=== PATIENT | male | born 1960 | race Caucasian/White ===

== ENCOUNTER 2017-10-04 05:20 | Day surgery (SDC) | payer BC, OTHER ==
[~2017-10-04 05:20] MED LIST: Lactated Ringers 1,000 ML IV SCH; Sodium Chloride 0.9% 10 ML Syringe FLUSH PRN; ceFAZolin 2 GM in Premix Bag 1 BAG IV ONE
[2017-10-04] MEDS ORDERED: Bupivacaine 0.5% 10 ML SDV INJECT ONE ×3 (05:21→09:20)
[2017-10-04] MEDS ORDERED: Propofol 200 MG/20 ML SDV IV ONE (05:21)
[2017-10-04] MEDS ORDERED: Lidocaine 1% 30 ML SDV INJECT ONE ×3 (05:21→09:20)
[2017-10-04] MEDS ORDERED: Ondansetron 4 MG/2 ML SDV IV ONE (05:21)
[2017-10-04] MEDS ORDERED: Ketorolac 30 MG/ML SDV IVPUSH ONE (05:21)
[2017-10-04] MEDS ORDERED: Midazolam 1 MG/ML 2 ML SDV IV ONE (05:21)
[2017-10-04] MEDS ORDERED: fentaNYL 100 MCG/2 ML SDV IV ONE (05:21)
[2017-10-04] MEDS ORDERED: Propofol 1,000 MG/100 ML SDV IV ONE (05:21)
[2017-10-04] MEDS ORDERED: Lidocaine 1% 30 ML SDV ONE (06:20)
[2017-10-04] MEDS ORDERED: Bupivacaine 0.5% 10 ML SDV ONE (06:20)
--- NOTE | 2017-10-04 19:34 | OR ---
DATE: 10/04/2017 PREOPERATIVE DIAGNOSES: 1. 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 2. Prominent medial cuneiform with pain, right foot. 3. Flatfoot deformity, bilateral. POSTOPERATIVE DIAGNOSES: 1. 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 2. Prominent medial cuneiform with pain, right foot. 3. Flatfoot deformity, bilateral. PROCEDURE PERFORMED: Right foot cuneiform navicular joint arthrodesis. ANESTHESIA: Local MAC with preoperative local block of 20 mL 1:1 mixture of 1% lidocaine plain and 0.5% Marcaine plain. TOURNIQUET TIME: Pneumatic ankle tourniquet, 84 minutes. ESTIMATED BLOOD LOSS: Minimal. SPECIMEN: None. COMPLICATIONS: None. INDICATIONS: Omar is a 57-year-old male, who presents with right foot pain. I have seen him in the past for other issues with his feet. Now he reports pain at the bottom of his right foot. He states there seems to be a painful lump in the arch area and this is very painful for him when he is standing or walking. I did make him a pair of custom inserts a few years ago but he cannot even wear those anymore due to that pushing against the bony prominence. He states this has been going on for few months now, states that he seemed to notice pain to that area after he had been climbing on a ladder at work. He states he felt a shift in the area, it has been painful underneath since with the bony prominence. He has been busy at work with harvest and is really flaring up on him the last few weeks. X-rays of the left foot reveal cuneiform navicular fault at the right mid foot with flatfoot deformity and prominent medial cuneiform plantarly. There is a prominence at that area on x-ray. 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 No signs of fracture present. The patient voiced good understanding of proposed procedure and possible complications, and elects to have surgery at this time. DESCRIPTION OF THE PROCEDURE: The patient was taken the operating room, lying in supine position. After adequate anesthesia induction as described above, the right foot was prepped and draped in the usual sterile fashion. A pneumatic ankle tourniquet was inflated to 225 mmHg. Attention was then directed to the right mid foot where an approximately 6-cm linear incision was made overlying the medial aspect of the navicular cuneiform joint. Sharp and blunt dissection were performed down to the level of the joint. The anterior tibial tendon was reflected dorsally in the surgical area. There was care to gently retract all neurovascular bundles and also that tendon. A 15 blade was used to make a capsulotomy through the capsule of the navicular cuneiform joint. The medial cuneiform navicular joint was exposed as well as the middle cuneiform navicular joint. Hintermann retractor was used to open the joint and a curette along with a bur was used to remove all cartilage from the medial cuneiform, intermediate cuneiform, and the navicular joint. Once all cartilage was removed, an osteotome was used to fenestrate the joint surfaces and a 0.062 K-wire was also used to fenestrate the joint surfaces. The cuneiform navicular joint was then reduced with the 1st ray plantar flexed and it was ensured that the cuneiform was displaced dorsally so that there was no bony prominence plantarly anymore. The 3-0 cannulated wires from the screw set were used as temporary fixation and fluoroscopy was used to verify proper positioning of the wires as well as proper positioning of the fusion site with no plantar prominence present and good compression at the fusion site. Three 3.0 Evelia cannulated partially threaded screws were placed across the fusion site from the medial navicular into the medial cuneiform and then also from the medial navicular to the intermediate cuneiform and the 3rd screw was placed from the medial cuneiform to the lateral aspect of the navicular. Good compression was noted at the fusion site. Fluoroscopy was then again used to verify proper length of screws and proper positioning with the fusion in a good position. The foot was examined and it was noted that he did have more of an arch with this fusion position. I also did feel for any bony prominence at the arch area and I was not able to feel any, a bone rasp was also used at the plantar aspect of the cuneiform to ensure no bony prominence. It was again felt that there was no prominence in the area. The area was then irrigated with copious amounts of sterile saline. The fusion site was stable with all forces applied. Deep closure was completed with 3-0 Vicryl and skin closure was completed with 4-0 nylon. The area was dressed with Xeroform to the incision site, fluffs, Webril, and a well-padded L and U splint with the foot in neutral. The patient tolerated anesthesia and procedure well and was transported to the recovery room with vital signs stable and vascular status intact as noted by immediate hyperemia to all digits upon deflation of the ankle tourniquet. The patient was then discharged home when he met hospital discharge requirements. [facility] /[id number]
== END 2017-10-04 10:13 | disposition home or self-care (01) ==
LOC: DL.SDS 05:20
PROVIDERS: ATTEND Podiatrist
DX: M21.41 Flat foot [pes planus] (acquired), right foot (principal); M21.42 Flat foot [pes planus] (acquired), left foot; J44.9 Chronic obstructive pulmonary disease, unspecified; E78.5 Hyperlipidemia, unspecified; Z98.890 Other specified postprocedural states; Z79.899 Other long term (current) drug therapy
CPT/HCPCS: 28737; J0690; J1885; J2250; J2405; J2704; J3010; J7120; C1713

== ENCOUNTER 2018-05-15 09:21 | Day surgery (SDC) | payer BC ==
[~2018-05-15 09:21] MED LIST changes: +Bupivacaine 0.5% 30 ML SDV ONE; +Lidocaine 1% 30 ML SDV ONE; +ceFAZolin 1 GM in Premix Bag 1 BAG IV ONE; -ceFAZolin 2 GM in Premix Bag 1 BAG IV ONE
[2018-05-15] MEDS ORDERED: Dexamethasone 4 MG/ML SDV IV ONE (09:22)
[2018-05-15] MEDS ORDERED: Ketorolac 30 MG/ML SDV IVPUSH ONE (09:22)
[2018-05-15] MEDS ORDERED: Propofol 200 MG/20 ML SDV IV ONE (09:22)
[2018-05-15] MEDS ORDERED: Midazolam 1 MG/ML 2 ML SDV IV ONE (09:22)
[2018-05-15] MEDS ORDERED: fentaNYL 100 MCG/2 ML SDV IV ONE (09:22)
[2018-05-15] MEDS ORDERED: Ondansetron 4 MG/2 ML SDV IV ONE (09:22)
[2018-05-15] MEDS ORDERED: Bupivacaine 0.5% 30 ML SDV INJECT ONE ×3 (09:22→14:40)
[2018-05-15] MEDS ORDERED: Lidocaine 1% 30 ML SDV INJECT ONE ×3 (09:22→14:40)
--- NOTE | 2018-05-15 16:39 | PCM.OPNOTE ---
- General Post-Op/Procedure Note Date of Surgery/Procedure: 05/15/18 Operative Procedure(s): left foot kidner procedure and navicular cuneiform arthrodesis Pre Op Diagnosis: Left foot painful accessory navicular, painful collapse with navicular cuneiform fault and painful plantar bony prominece at NC joint. Post-Op Diagnosis: thang Anesthesia Technique: General LMA Primary Surgeon: Neeru Reeves Anesthesia Provider: Barrington Kearney EBL in mLs: 10 Complications: none Condition: Good Free Text/Narrative:: Intake & Output 05/15/18 05/15/18 05/15/18 06:59 14:59 22:59 Intake Total 750 Balance 750 Pt tolerated procedure well and was transported to recovery with vascular status intact to left foot. iggy 4.0 cannulated screws used at fusion. Well padded L&U splint applied with foot in slight supination.
--- NOTE | 2018-05-16 11:22 | OR ---
DATE: 05/15/2018 PREOPERATIVE DIAGNOSES: 1. Left foot medial midfoot collapse of the navicular cuneiform joint. 2. Prominent medial cuneiform with pain, left foot. 3. Painful accessory navicular bone, left foot. PROCEDURES PERFORMED: 1. Left foot navicular cuneiform joint arthrodesis. 2. Left foot removal of accessory navicular bone/Kidner procedure. ANESTHESIA: General LMA with preoperative local block of 20 mL of 1:1 mixture of 1% lidocaine plain and 0.5% Marcaine plain. TOURNIQUET TIME: Pneumatic thigh tourniquet, 115 minutes. ESTIMATED BLOOD LOSS: Minimal. SPECIMEN: None. COMPLICATIONS: None. INDICATIONS: Omar is a 57-year-old male who presents with left foot pain. I have seen him in the past for his feet, and I have done a surgery on his right foot which was a navicular cuneiform fusion. He has done very well after that right foot fusion and is no longer having any pain to that foot. He would like to have the same procedure in his left foot, plus he also has a very painful prominent bone on the inside of his foot that rubs on his shoes, and he is also wondering if he can get this fixed as well. He is on his feet a lot during work, he has to climb ladders, and this really causes pain to the arch of his foot where there is a bony prominence both underneath the arch and on the side of his foot. He does wear good shoes, and he does have custom orthotics which really are not helping much. We have tried cushioning with no relief. 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 X-rays of the left foot revealed medial cuneiform fault at the midfoot with a slight flatfoot deformity, a large accessory navicular bone present. The patient voiced good understanding of the proposed procedure and possible complications and elects to have surgery at this time. DESCRIPTION OF PROCEDURE: The patient was taken to the operating room lying in supine position. After adequate anesthesia induction as described above, the left foot was prepped and draped in the usual sterile fashion. A pneumatic thigh tourniquet was inflated to 225 mmHg. Attention was directed to the left midfoot where an approximately 8 cm linear incision was made overlying the medial aspect of the navicular cuneiform joint overlying the accessory navicular, extending proximal along the posterior tibial tendon, just a small amount. Sharp and blunt dissection was performed first down to the level of the accessory navicular bone. The sharp and blunt dissection was made down to the level of the periosteum overlying the accessory navicular. A linear capsulotomy was made, and the accessory navicular was identified and sharply excised from the foot. A mallet and osteotome were then used to resect the prominent portion of the enlarged navicular. A bone rasp was used to smooth all rough bony edges. It was noted that most of the posterior tibial tendon remained intact, however, a small portion did have to be reflected; and a bone anchor was attempted to be placed in this area, however, it did not hold, so I used drill holes and used the suture and needles from the bone anchor and put them through the drill holes, suturing the posterior tibial tendon down to the navicular in that way. This was done with the foot in a supinated position after the medial cuneiform joint fusion was done. Attention was then directed to the navicular cuneiform joint. Sharp and blunt dissection was performed down to the level of the joint, and the anterior tibial tendon was reflected dorsally in the surgical area. There was care to gently retract all neurovascular bundles and also that tendon. A #15 blade was used to make a capsulotomy through the capsule of the navicular cuneiform joint. The medial cuneiform navicular joint was exposed as well as the middle cuneiform navicular joint. A Hintermann retractor was used to open the joint, and a curette was used to remove all cartilage from those joints. Once all cartilage was removed, an osteotome was used to fenestrate the joint surface, and a 0.062 inch K-wire was used to fenestrate the joint surfaces as well. The navicular cuneiform joint was then reduced with first ray plantar flexed and the foot supinated to ensure that the cuneiform was displaced dorsally, that there was no bony prominence plantarly anymore. A 4.0 cannulated wire from the [place] screw set was then used as temporary fixation to the medial navicular and to the medial cuneiform and also the intermediate cuneiform and then the medial cuneiform to the navicular. Fluoroscopy was used to verify proper position of the wires as well as proper position of the fusion site with no plantar prominence and good compression at the fusion site. Three 4.0 Evelia cannulated partially-threaded screws were then placed across the fusion site. Good compression was noted at the fusion site. Fluoroscopy was then again used to verify proper length of the screws and proper positioning of the fusion. The foot was examined and did note to have a good arch with this fusion position as well as no remaining bony prominence. I did, however, use a bone rasp at that plantar cuneiform to ensure there was no bony prominence. The areas were then irrigated with copious amounts of sterile saline. The fusion site was stable with all forces applied. Deep closure was completed with 3-0 Vicryl, and skin closure was completed with 4-0 nylon. The area was dressed with Xeroform to the incision site, fluffs, Webril, and a well-padded L and U splint with the foot in slight supinated position. The patient tolerated anesthesia and the procedure well and was transferred to recovery with vital signs stable and vascular status intact as noted by immediate hyperemia to all digits upon deflation of the thigh tourniquet. He was then discharged home once he met hospital discharge requirements. [facility] /[id number]
== END 2018-05-15 16:38 | disposition home or self-care (01) ==
LOC: DL.SDS 09:21
PROVIDERS: ATTEND Podiatrist
DX: M25.572 Pain in left ankle and joints of left foot (principal); M24.175 Other articular cartilage disorders, left foot; M89.8X7 Other specified disorders of bone, ankle and foot; M21.42 Flat foot [pes planus] (acquired), left foot; I10 Essential (primary) hypertension; J44.9 Chronic obstructive pulmonary disease, unspecified; G62.9 Polyneuropathy, unspecified; E78.5 Hyperlipidemia, unspecified; Z87.891 Personal history of nicotine dependence; Z79.899 Other long term (current) drug therapy
CPT/HCPCS: 28238; 28735; J0690; J1100; J1885; J2250; J2405; J2704; J3010; J7050; J7120